=== PATIENT | male | born 1970 | race Caucasian/White ===

== ENCOUNTER 2024-02-29 08:32 | Outpatient (OUT) | payer OTHER, SELFPAY ==
[2024-02-29 09:19] LABS: Estimated Average Glucose 154 mg/dL
[2024-02-29 10:44] LABS: Basophils Percent Auto 0.6 % (0.2-2.0); Eosinophils Absolute Auto 0.2 10^3/uL (0.0-0.7); Eosinophils Percent Auto 2.1 % (0.9-7.0); Hematocrit 42.5 % (42.0-54.0); Hemoglobin 14.7 g/dL (14.0-18.0); Immature Granulocytes Abs Auto 0.03 10^3/uL (0.00-0.03); Immature Granulocytes Pct Auto 0.4 % (0.0-0.5); Lymphocytes Absolute Auto 2.3 10^3/uL (1.2-3.8); Lymphocytes Percent Auto 32.1 % (20.5-60.0); Mean Corpuscular HGB Conc 34.6 g/dL (29.9-35.2); Mean Corpuscular Hemoglobin 30.7 pg (25.9-34.0); Mean Corpuscular Volume 88.7 fL (80.0-94.0); Mean Platelet Volume 11.2 fL (9.5-13.5); Monocytes Absolute Auto 0.4 10^3/uL (0.3-0.8); Neutrophils Absolute Auto 4.2 10^3/uL (1.4-6.5); Neutrophils Percent Auto 59.8 % (43.0-75.0); Platelet Count 164 10^3/uL (150-450); Red Blood Count 4.79 10^6/uL (4.70-6.10); Red Cell Distribution Width 13.1 % (11.0-15.0)
[2024-02-29 10:57] LABS: Alanine Aminotransferase 61 U/L (16-63); Albumin Globulin Ratio 1.4; Albumin Level 4.2 g/dL (3.4-5.0); Alkaline Phosphatase 76 U/L (46-116); Anion Gap 15.5; Aspartate Amino Transferase 43 U/L (15-37); BUN Creatinine Ratio 12.5; Bilirubin Total 0.7 mg/dL (0.2-1.0); Carbon Dioxide 23.4 mmol/L (21.0-32.0); Chloride 101 mmol/L (98-107); Chol HDL Ratio 8.1; Cholesterol 309 mg/dL (<=200); Estimated GFR (African America >60 (>=60); Estimated GFR (Non-African Ame >60 (>=60); Free T3 2.74 pg/mL (2.18-3.98); Globulin 3.1 g/dL; Glucose 193 mg/dL (74-106); HDL Cholesterol 38 mg/dL (40-60); Potassium 3.9 mmol/L (3.5-5.1); Sodium 136 mmol/L (136-145); Thyroid Stimulating Hormone 1.796 uIU/mL (0.358-3.740); Total Protein 7.3 g/dL (6.4-8.2); Triglycerides 1753 mg/dL (<=150); VLDL CHOLESTEROL 350.6 mg/dL
[2024-02-29 10:59] LABS: LDL Cholesterol Direct 86 mg/dL
[2024-02-29 11:26] LABS: Prostate Specific Antigen Scrn 0.41 ng/mL (<=4.00)
[2024-03-01 12:10] LABS: Insulin 28.6 uIU/mL (2.6-24.9)
== END 2024-02-29 08:33 | disposition home or self-care (01) ==
LOC: LAB 08:36
PROVIDERS: PCP Family Medicine; Visit Provider Family Medicine
DX: Z00.00 Encounter for general adult medical examination without abnormal findings (principal); E78.5 Hyperlipidemia, unspecified; R73.09 Other abnormal glucose; Z12.5 Encounter for screening for malignant neoplasm of prostate; Z12.12 Encounter for screening for malignant neoplasm of rectum
CPT/HCPCS: 36415; 80053; 80061; 83036; 83525; 83721; 84436; 84443; 84481; 85025; G0103

== ENCOUNTER 2024-03-21 09:00 | Outpatient (REF) | payer OTHER, SELFPAY ==
--- OUTSIDE RECORDS SUMMARY | 2024-03-22 10:10 | XMS_ITS | CCD ---
Author Organization [facility] Team Providers Care Inflatable Buildings Laminator Name Role Phone MEKHI ., DR MITCHELL Primary Care Unavailable HOY ., DR MITCHELL Attending Unavailable HOY ., DR MITCHELL Admitting Unavailable HOY ., DR MITCHELL Admitting Unavailable HOY ., DR MITCHELL Primary Care Unavailable HOY ., DR MITCHELL Consulting Unavailable HOY ., DR MITCHELL Attending Unavailable HOY ., DR MITCHELL Admitting Unavailable HOY ., DR MITCHELL Attending Unavailable RodrigoyStephen Referring Unavailable Stephen Gaming Attending Unavailable Problems Problem Classification Problem Date Documented Da te Episodic/Chronic Other screening for suspected conditions (not mental disorders or infectious disease) (1 source) Encounter for screening for malignant neoplasm of prostate; Translations: [ENC SCREEN MALIG NEOPLASM PROSTATE] Onset: 12-26-2022 Episodic Results Test Name Value Interpretation Reference Range Facil ity Consent for Treatmenton 02-21 Consent for Treatment [id number] #1.00TIFF Normal [facility] Physician Orderon 03-01-2024 Physician Order [id number] #1.00TIFF Normal [facility] INSULINon 12-23-2022 Insulin 14.3 uIU/mL Normal 2.6-24.[address] [facility] Comment on above: Performed By: #### I NSULIN #### [facility] [address] [address] [address] Trisha Echeverria CBC AUTO DIFFon 12-22-2022 BASO # 0.0 103/ul Normal 0.0-0.[address] [facility] Comment on above: Performed By: #### C BC #### [facility] [address] [address] [address] Trisha Echeverria Basophils/100 WBC (Bld) 0.2 % Normal 0.2-2.[address] [facility] Comment on above: Performed By: #### C BC #### [facility] [address] [address] [address] Trisha Echeverria EO # 0.0 103/ul Normal 0.0-0.7 [facility] Comment on above: Performed By: #### C BC #### [facility] [address] [address] [address] Trisha Echeverria Eosinophils/100 WBC (Bld) 0.5 % Critically low 0.9-7.[address] [facility] Comment on above: Performed By: #### C BC #### [facility] [address] [place] [address] Dr. Trisha Echeverria Erythrocyte distribution width (RBC) [Ratio] 13.2 % Normal 11.0-15.[address] [facility] Comment on above: Performed By: #### C BC #### [facility] [address] [address] [address] Trisha Echeverria Hematocrit (Bld) [Volume fraction] 42.8 % Normal 42.0-54.[address] [facility] Comment on above: Performed By: #### C BC #### [facility] [address] [place] [address] Dr. Trisha Echeverria Hemoglobin (Bld) [Mass/Vol] 14.9 g/dL Normal 14.0-18.[address] [facility] Comment on above: Performed By: #### C BC #### [facility] [address] [address] [address] Trisha Echeverria IG # 0.05 10e3/ul Critically high 0.00-0.03 [facility] Comment on above: Performed By: #### C BC #### [facility] [address] [address] [address] Trisha Echeverria IG % 0.6 % Critically high 0.0-0.5 [facility] Comment on above: Performed By: #### C BC #### [facility] [address] [address] [address] Trisha Echeverria LYMPH # 1.7 103/ul Normal 1.2-3.8 [facility] Comment on above: Performed By: #### C BC #### [facility] [address] [place] [address] Dr. Trisha Echeverria Lymphocytes/100 WBC (Bld) 19.2 % Critically low 20.5-60.[address] [facility] Comment on above: Performed By: #### C BC #### [facility] [address] [place] [address] Dr. Trisha Echeverria MANUAL DIFF REQ NO Normal [facility] Comment on above: Performed By: #### C BC #### [facility] [address] [place] [address] Dr. Trisha Echeverria MCH (RBC) [Entitic mass] 30.7 pg Normal 25.9-34.[address] [facility] Comment on above: Performed By: #### C BC #### [facility] [address] [place] [address] Dr. Trisha Echeverria MCHC (RBC) [Mass/Vol] 34.8 g/dL Normal 29.9-35.[address] [facility] Comment on above: Performed By: #### C BC #### [facility] [address] [place] [address] Dr. Trisha Echeverria MCV (RBC) [Entitic vol] 88.2 fL Normal 80.0-94.[address] [facility] Comment on above: Performed By: #### C BC #### [facility] [address] [place] [address] Dr. Trisha Echeverria MONO # 0.5 103/ul Normal 0.3-0.8 [facility] Comment on above: Performed By: #### C BC #### [facility] [address] [place] [address] Dr. Trisha Echeverria Monocytes/100 WBC (Bld) 6.1 % Normal 1.7-12.[address] [facility] Comment on above: Performed By: #### C BC #### [facility] [address] [address] [address] Trisha Echeverria NEUT # 6.4 103/ul Normal 1.4-6.5 [facility] Comment on above: Performed By: #### C BC #### [facility] [address] [place] [address] Dr. Trisha Echeverria Neutrophils/100 WBC (Bld) 73.4 % Normal 43.0-75.[address] [facility] Comment on above: Performed By: #### C BC #### [facility] [address] [place] [address] Dr. Trisha Echeverria Platelet mean volume (Bld) [Entitic vol] 10.5 fL Normal 9.5-13.5 [facility] Comment on above: Performed By: #### C BC #### [facility] [address] [place] [address] Dr. Trisha Echeverria PLT 201 103/ul Normal 150-450 [facility] Comment on above: Performed By: #### C BC #### [facility] [address] [place] [address] Dr. Trisha Echeverria RBC 4.85 106/ul Normal 4.70-6.10 [facility] Comment on above: Performed By: #### C BC #### [facility] [address] [place] [address] Dr. Trisha Echeverria WBC 8.7 103/ul Normal 4.0-11.0 [facility] Comment on above: Performed By: #### C BC #### [facility] [address] [place] [address] Dr. Trisha Echveerria DIRECT LDLon 12-22-2022 Cholesterol in LDL [Mass/Vol] 146 mg/dL Normal [facility] Comment on above: Performed By: #### L IPID, CMP, URIC, DLDL #### [facility] [address] [place] [address] Dr. Trisha Echeverria DLDL NORMAL SEE BELOW Normal [facility] Comment on above: Result Comment: <100 mg/dl OPTIMAL 100 - 129 mg/dl NEAR OR ABOVE OPTIMAL 130 - 159 mg/dl BORDERLINE HIGH 160 - 189 mg/dl HIGH >190 mg/dl VERY HIGH Performed By: #### L IPID, CMP, URIC, DLDL #### [facility] [address] [address] [address] Trisha Echeverria GLYCOHEMOGLOBIN A1Con 2022 ADA RECOMMENDATION SEE BELOW Normal [facility] Comment on above: Result Comment: ADA RECOMMENDED LIMIT 4.0 - 6.0 ADA THERAPEUTIC TARGET < 7.0 ACTION SUGGESTED > 7.0 Performed By: #### A 1C #### [facility] [address] [address] [address] Trisha Echeverria Glucose [Mass/Vol] 137 mg/dL Normal [facility] Comment on above: Performed By: #### A 1C #### [facility] [address] [address] [address] Trisha Echeverria HbA1c (Bld) [Mass fraction] 6.4 % Critically high 4.5-6.[address] [facility] Comment on above: Performed By: #### A 1C #### [facility] [address] [address] [address] Trisha Echeverria LIPID PROFILEon 12-22-2022 CHOL-HDL RATIO NORM SEE BELOW Normal [facility] Comment on above: Result Comment: 3.3 - 4.4 LOW RISK 4.4 - 7.1 AVERAGE RISK 7.1 - 11.0 MODERATE RISK >11.0 HIGH RISK Performed By: #### L IPID, CMP, URIC, DLDL #### [facility] [address] [address] [address] Trisha Echeverria Cholesterol [Mass/Vol] 286 mg/dL Critically high <=[address] [facility] Comment on above: Performed By: #### L IPID, CMP, URIC, DLDL #### [facility] [address] [address] [address] Trisha Echeverria Cholesterol in HDL [Mass/Vol] 45 mg/dL Normal 40-[address] [facility] Comment on above: Performed By: #### L IPID, CMP, URIC, DLDL #### [facility] [address] [address] [address] Trisha Echeverria Cholesterol.total/Cho lesterol in HDL [Mass ratio] 6.4 {ratio} Normal [facility] Comment on above: Performed By: #### L IPID, CMP, URIC, DLDL #### [facility] [address] [place] [address] Dr. Trisha Echeverria HDL NORMAL > or = 60 mg/dl - LOW CARDIOVASCULAR RISK <40 mg/dl - HIGH CARDIOVASCULAR RISK Normal [facility] Comment on above: Performed By: #### L IPID, CMP, URIC, DLDL #### [facility] [address] [address] [address] Trisha Echeverria LDL CALC NORMAL SEE BELOW Normal [facility] Comment on above: Result Comment: <100 mg/dl OPTIMAL 100 - 129 mg/dl NEAR OR ABOVE OPTIMAL 130 - 159 mg/dl BORDERLINE HIGH 160 - 189 mg/dl HIGH >190 mg/dl VERY HIGH Performed By: #### L IPID, CMP, URIC, DLDL #### [facility] [address] [place] [address] Dr. Trisha Echeverria Triglyceride [Mass/Vol] 529 mg/dL Critically high <=[address] [facility] Comment on above: Performed By: #### L IPID, CMP, URIC, DLDL #### [facility] [address] [address] [address] Trisha Echeverria VLDL CALC 105.8 mg/dL Normal [facility] Comment on above: Performed By: #### L IPID, CMP, URIC, DLDL #### [facility] [address] [place] [address] Dr. Trisha Echeverria PROF 14(COMP METB)on 023 Albumin [Mass/Vol] 4.4 g/dL Normal 3.4-5.0 [facility] Comment on above: Performed By: #### L IPID, CMP, URIC, DLDL #### [facility] [address] [place] [address] Dr. Trisha Echeverria Albumin/Globulin [Mass ratio] 1.3 {ratio} Normal [facility] Comment on above: Performed By: #### L IPID, CMP, URIC, DLDL #### [facility] [address] [place] [address] Dr. Trisha Echeverria ALP [Catalytic activity/Vol] 82 U/L Normal 46-[address] [facility] Comment on above: Performed By: #### L IPID, CMP, URIC, DLDL #### [facility] [address] [address] [address] Trisha Echeverria ALT [Catalytic activity/Vol] 69 U/L Critically high 16-[address] [facility] Comment on above: Performed By: #### L IPID, CMP, URIC, DLDL #### [facility] [address] [address] [address] Trisha Echeverria Anion gap [Moles/Vol] 12.4 mmol/L Normal [facility] Comment on above: Performed By: #### L IPID, CMP, URIC, DLDL #### [facility] [address] [place] [address] Dr. Trisha Echeverria AST [Catalytic activity/Vol] 34 U/L Normal 15-[address] [facility] Comment on above: Performed By: #### L IPID, CMP, URIC, DLDL #### [facility] [address] [address] [address] Trisha Echeverria Bilirubin [Mass/Vol] 0.8 mg/dL Normal 0.2-1.[address] [facility] Comment on above: Performed By: #### L IPID, CMP, URIC, DLDL #### [facility] [address] [place] [address] Dr. Trisha Echeverria Calcium [Mass/Vol] 9.5 mg/dL Normal 8.5-10.1 [facility] Comment on above: Performed By: #### L IPID, CMP, URIC, DLDL #### [facility] [address] [address] [address] Trisha Echeverria Chloride [Moles/Vol] 100 mmol/L Normal 98-[address] [facility] Comment on above: Performed By: #### L IPID, CMP, URIC, DLDL #### [facility] [address] [address] [address] Trisha Echeverria CO2 [Moles/Vol] 28.1 mmol/L Normal 21.0-32.0 [facility] Comment on above: Performed By: #### L IPID, CMP, URIC, DLDL #### [facility] [address] [place] [address] Dr. Trisha Echeverria Creatinine [Mass/Vol] 1.15 mg/dL Normal 0.70-1.[address] [facility] Comment on above: Performed By: #### L IPID, CMP, URIC, DLDL #### [facility] [address] [place] [address] Dr. Trisha Echeverria EGFR-AF [place]LANDER >60 Normal >=60 [facility] Comment on above: Performed By: #### L IPID, CMP, URIC, DLDL #### [facility] [address] [place] [address] Dr. Trisha Echeverria EGFR-NON AF [place]ER >60 Normal >=[address] [facility] Comment on above: Performed By: #### L IPID, CMP, URIC, DLDL #### [facility] [address] [place] [address] Dr. Trisha Echeverria Globulin (S) [Mass/Vol] 3.4 g/dL Normal [facility] Comment on above: Performed By: #### L IPID, CMP, URIC, DLDL #### [facility] [address] [place] [address] Dr. Trisha Echeverria Glucose [Mass/Vol] 148 mg/dL Critically high 74-106 [facility] Comment on above: Performed By: #### L IPID, CMP, URIC, DLDL #### [facility] [address] [place] [address] Dr. Trisha Echeverria Potassium [Moles/Vol] 4.5 mmol/L Normal 3.5-5.[address] [facility] Comment on above: Performed By: #### L IPID, CMP, URIC, DLDL #### [facility] [address] [place] [address] Dr. Trisha Echeverria Protein [Mass/Vol] 7.8 g/dL Normal 6.4-8.2 [facility] Comment on above: Performed By: #### L IPID, CMP, URIC, DLDL #### [facility] [address] [address] [address] Trisha Echeverria Sodium [Moles/Vol] 136 mmol/L Normal 136-145 [facility] Comment on above: Performed By: #### L IPID, CMP, URIC, DLDL #### [facility] [address] [address] [address] Trisha Echeverria Urea nitrogen [Mass/Vol] 14.0 mg/dL Normal 7.0-18.[address] [facility] Comment on above: Performed By: #### L IPID, CMP, URIC, DLDL #### [facility] [address] [address] [address] Trisha Echeverria Urea nitrogen/Creatinine [Mass ratio] 12.2 mg/mg Normal [facility] Comment on above: Performed By: #### L IPID, CMP, URIC, DLDL #### [facility] [address] [address] [address] Trisha Echeverria URIC ACID SERUMon 12-22-2022 Urate [Mass/Vol] 4.8 mg/dL Normal 3.5-7.2 [facility] Comment on above: Performed By: #### L IPID, CMP, URIC, DLDL #### [facility] [address] [address] [address] Trisha Echeverria Encounters Encounter Date Encounter Type Care Provider Facility Start: 03-07-2024 ambulatory Stephen Gaming Facility:[facility] Start: [address] STEPHEN GAMING . Facili ty:[facility] Start: 12-26-2022 Encounter for genera l adult medical examination without abnormal findings DR STEPHEN GAMING . [facility] Start: 12-22-2022 End: 12-23-[address] STEPHEN GAMING . Facility:[facility] Start: 12-22-2022 End: 12-23-2022 Encounter for general adult medical examination without abnormal findings DR STEPHEN GAMING . Facility: Start: 12-16-[address] STEPHEN GAMING . Facili ty:[facility] Procedures Date Procedure Procedure Detail Performing Clinician Start: 12-22-[address] TAYLER GAMING . Comment on above: Performed By: #### P SASC #### [facility] [address] [place], [place] [address] Dr. Trisha Echeverria Payers Date Payer Category Payer Unknown [id number] 1970 Unknown [id number] 2.16.84 [id number] 1972 Unknown [id number] 2.16.84 [id number] 1972 Unknown [id number] 2.16.84 [id number] 1972 Unknown [id number] 2.16.8 [id number] 1957 Self-pay Summary Purpose Family History No Family History Records FoundNo Family History Records Found Advance Directives No Advanced Directives Records FoundNo Advanced Directives Records Found Additional Source Comments (unrecognized sect ion and content) No Status Records FoundNo Status Records Found INFORMATION SOURCE (unrecogn ized section and content) DATE CREATED AUTHOR 01/13/2023 [facility] DATE CREATED AUTHOR AUTHOR'S ORGANIZ ATION 03/09/2024 [facility] FOR RECORDS PERTAINING TO PATIENTS WHO ARE OR HAVE BEEN ENROLLED IN A CHEMICAL DEPENDENCY/SUBSTANCEABUSE PROGRAM, SOME INFORMATION MAY BE OMITTED. This clinical summary was aggregated from multiple sources. Caution should be exercised in using it in the provision of clinical care. This summary normalizes information from multiple sources, and as a consequence, information in this document may materially change the coding, format and clinical context of patient data. In addition, data may be omitted in some cases. CLINICAL DECISIONS SHOULD BE BASED ON THE PRIMARY CLINICAL RECORDS. [employer] provides no warranty or guarantee of the accuracy or completeness of information in this document.
[2024-03-22 15:40] LABS: Internal Control Within Normal Limits; Occult Blood Negative
== END 2024-03-21 09:01 | disposition home or self-care (01) ==
LOC: LAB 09:00
PROVIDERS: PCP Family Medicine; Visit Provider Family Medicine
DX: Z00.00 Encounter for general adult medical examination without abnormal findings (principal); E78.5 Hyperlipidemia, unspecified; R73.09 Other abnormal glucose; Z12.5 Encounter for screening for malignant neoplasm of prostate; Z12.12 Encounter for screening for malignant neoplasm of rectum
CPT/HCPCS: G0328

== ENCOUNTER 2024-08-14 09:58 | Outpatient (OUT) | payer OTHER, SELFPAY ==
--- OUTSIDE RECORDS SUMMARY | 2024-08-14 10:12 | XMS_ITS | CCD ---
Author Organization [facility] Care Team Providers Care Decorating Supervisor Name Role Phone MEKHI ., DR MITCHELL Primary Care Unavailable HOY ., DR MITCHELL Attending Unavailable HOY ., DR MITCHELL Admitting Unavailable HOY ., DR MITCHELL Admitting Unavailable HOY ., DR MITCHELL Primary Care Unavailable HOY ., DR MITCHELL Consulting Unavailable HOY ., DR MITCHELL Attending Unavailable HOY ., DR IMTCHELL Admitting Unavailable MEKHI ., DR MITCHELL Attending Unavailable Stephen Gaming Primary Care Physician Stephen Gaming Referring Unavailable Stephen Gaming Attending Unavailable Medications Current Medications Medication Drug Class(es) Dates Sig (Normalized) Sig (Original) Acetaminophen / HYDROcodone (1 source) Opioid Agonist Start: 11-22-2012 Vicodin Oral, Refill(s) 0 Start Date: 11/22/12 Status: Ordered Acetaminophen / oxyCODONE (1 source) Opioid Agonist Start: 11-22-2012 Percocet 325 mg-5 mg Tab 1-2 tab(s), Oral, q4hr as needed for pain, 30 tab(s), Refill(s) 0, Take 1-2 tab by mouth every four hours as needed for pain Start Date: 11/22/12 Status: Ordered tamsulosin hydrochloride 0.4 mg oral capsule (1 source) alpha-Adrenergic Vanesa Start: 11-22-2012 take 1 capsule by mouth once daily, then take 1 capsule by mouth once daily Flomax 0.4 mg Cap 0.4 mg = 1 cap(s), Oral, Daily, Take one by mouth daily, # 10 cap(s), Refills(s) 0 Start Date: 11/22/12 Status: Ordered Completed/Discontinued Medications Medication Drug Class(es) Dates Sig (Normalized) Sig (Original) ondansetron 4 mg oral tablet (1 source) Serotonin-3 Receptor Antagonist Start: 11-22-2012 take 1 tablet by mouth every six hours as needed for nausea Zofran 4 mg Tab 4 mg = 1 tab(s), Oral, q6hr, PRN as needed for nausea/vomiting, Take one tab by mouth every six hours as needed for nausea, # 8 tab(s), Refills(s) 0 Start Date: 11/22/12 Status: Ordered Problems Problem Classification Problem Date Documented Da te Episodic/Chronic Administrative/social admission (1 source) Counseling procedure with explicit context; Translations: [Dietary counseling and surveillance] Episodic Diabetes mellitus without complication (1 source) Type 2 diabetes mellitus without complication; Translations: [Type 2 diabetes mellitus without complications] Chronic Other screening for suspected conditions (not mental disorders or infectious disease) (2 sources) Encounter for screening for malignant neoplasm of prostate; Translations: [No current problems or disability] Onset: 12-26-2022 04-11-2014 Episodic Results Test Name Value Interpretation Reference Range Facil ity Consent for Treatmenton 02-21 Consent for Treatment [id number] #1.00TIFF Normal [facility] Physician Orderon 03-01-2024 Physician Order [id number] #1.00TIFF Normal [facility] INSULINon 12-23-2022 Insulin 14.3 uIU/mL Normal 2.6-24.9 [facility] Comment on above: Performed By: #### I NSULIN #### [facility] [address] [place] [address] Dr. Trisha Echeverria CBC AUTO DIFFon 12-22-2022 BASO # 0.0 103/ul Normal 0.0-0.1 [facility] Comment on above: Performed By: #### C BC #### [facility] [address] [place] [address] Dr. Trisha Echeverria Basophils/100 WBC (Bld) 0.2 % Normal 0.2-2.0 [facility] Comment on above: Performed By: #### C BC #### [facility] [address] [place] [address] Dr. Trisha Echeverria EO # 0.0 103/ul Normal 0.0-0.7 [facility] Comment on above: Performed By: #### C BC #### [facility] [address] [place] [address] Dr. Trisha Echeverria Eosinophils/100 WBC (Bld) 0.5 % Critically low 0.9-7.0 [facility] Comment on above: Performed By: #### C BC #### [facility] [address] [place] [address] Dr. Trisha Echeverria Erythrocyte distribution width (RBC) [Ratio] 13.2 % Normal 11.0-15.0 [facility] Comment on above: Performed By: #### C BC #### [facility] [address] [place] [address] Dr. Trisha Echeverria Hematocrit (Bld) [Volume fraction] 42.8 % Normal 42.0-54.0 [facility] Comment on above: Performed By: #### C BC #### [facility] [address] [place] [address] Dr. Trisha Echeverria Hemoglobin (Bld) [Mass/Vol] 14.9 g/dL Normal 14.0-18.0 [facility] Comment on above: Performed By: #### C BC #### [facility] [address] [place] [address] Dr. Trisha Echeverria IG # 0.05 10e3/ul Critically high 0.00-0.03 [facility] Comment on above: Performed By: #### C BC #### [facility] [address] [place] [address] Dr. Trisha Echeverria IG % 0.6 % Critically high 0.0-0.5 [facility] Comment on above: Performed By: #### C BC #### [facility] [address] [place] [address] Dr. Trisha Echeverria LYMPH # 1.7 103/ul Normal 1.2-3.8 [facility] Comment on above: Performed By: #### C BC #### [facility] [address] [place] [address] Dr. Trisha Echeverria Lymphocytes/100 WBC (Bld) 19.2 % Critically low 20.5-60.0 [facility] Comment on above: Performed By: #### C BC #### [facility] [address] [place] [address] Dr. Trisha Echeverria MANUAL DIFF REQ NO Normal [facility] Comment on above: Performed By: #### C BC #### [facility] [address] [place] [address] Dr. Trisha Echeverria MCH (RBC) [Entitic mass] 30.7 pg Normal 25.9-34.0 [facility] Comment on above: Performed By: #### C BC #### [facility] [address] [place] [address] Dr. Trisha Echeverria MCHC (RBC) [Mass/Vol] 34.8 g/dL Normal 29.9-35.2 [facility] Comment on above: Performed By: #### C BC #### [facility] [address] [place] [address] Dr. Trisha Echeverria MCV (RBC) [Entitic vol] 88.2 fL Normal 80.0-94.0 [facility] Comment on above: Performed By: #### C BC #### [facility] [address] [place] [address] Dr. Trisha Echeverria MONO # 0.5 103/ul Normal 0.3-0.8 [facility] Comment on above: Performed By: #### C BC #### [facility] [address] [place] [address] Dr. Trisha Echeverria Monocytes/100 WBC (Bld) 6.1 % Normal 1.7-12.0 [facility] Comment on above: Performed By: #### C BC #### [facility] [address] [place] [address] Dr. Trisha Echeverria NEUT # 6.4 103/ul Normal 1.4-6.5 [facility] Comment on above: Performed By: #### C BC #### [facility] [address] [place] [address] Dr. Trisha Echeverria Neutrophils/100 WBC (Bld) 73.4 % Normal 43.0-75.0 [facility] Comment on above: Performed By: #### C BC #### [facility] [address] [address] [address] Trisha Echeverria Platelet mean volume (Bld) [Entitic vol] 10.5 fL Normal 9.5-13.5 [facility] Comment on above: Performed By: #### C BC #### [facility] [address] [address] [address] Trisha Echeverria PLT 201 103/ul Normal 150-450 [facility] Comment on above: Performed By: #### C BC #### [facility] [address] [address] [address] Trisha Echeverria RBC 4.85 106/ul Normal 4.70-6.10 [facility] Comment on above: Performed By: #### C BC #### [facility] [address] [address] [address] Trisha Echeverria WBC 8.7 103/ul Normal 4.0-11.0 [facility] Comment on above: Performed By: #### C BC #### [facility] [address] [address] [address] Trisha Echeverria DIRECT LDLon 12-22-2022 Cholesterol in LDL [Mass/Vol] 146 mg/dL Normal [facility] Comment on above: Performed By: #### L IPID, CMP, URIC, DLDL #### [facility] [address] [address] [address] Trisha Echeverria DLDL NORMAL SEE BELOW Normal [facility] Comment on above: Result Comment: <100 mg/dl OPTIMAL 100 - 129 mg/dl NEAR OR ABOVE OPTIMAL 130 - 159 mg/dl BORDERLINE HIGH 160 - 189 mg/dl HIGH >190 mg/dl VERY HIGH Performed By: #### L IPID, CMP, URIC, DLDL #### [facility] [address] [address] [address] Trisha Echeverria GLYCOHEMOGLOBIN A1Con 2022 ADA RECOMMENDATION SEE BELOW Normal [facility] Comment on above: Result Comment: ADA RECOMMENDED LIMIT 4.0 - 6.0 ADA THERAPEUTIC TARGET < 7.0 ACTION SUGGESTED > 7.0 Performed By: #### A 1C #### [facility] [address] [address] [address] Trisha Echeverria Glucose [Mass/Vol] 137 mg/dL Normal [facility] Comment on above: Performed By: #### A 1C #### [facility] [address] [address] [address] Trisha Echeverria HbA1c (Bld) [Mass fraction] 6.4 % Critically high 4.5-6.2 [facility] Comment on above: Performed By: #### A 1C #### [facility] [address] [address] [address] Trisha Echeverria LIPID PROFILEon 12-22-2022 CHOL-HDL RATIO NORM SEE BELOW Normal [facility] Comment on above: Result Comment: 3.3 - 4.4 LOW RISK 4.4 - 7.1 AVERAGE RISK 7.1 - 11.0 MODERATE RISK >11.0 HIGH RISK Performed By: #### L IPID, CMP, URIC, DLDL #### [facility] [address] [address] [address] Trisha Echeverria Cholesterol [Mass/Vol] 286 mg/dL Critically high <=200 [facility] Comment on above: Performed By: #### L IPID, CMP, URIC, DLDL #### [facility] [address] [address] [address] Trisha Echeverria Cholesterol in HDL [Mass/Vol] 45 mg/dL Normal 40-60 [facility] Comment on above: Performed By: #### L IPID, CMP, URIC, DLDL #### [facility] [address] [address] [address] Trisha Echeverria Cholesterol.total/Cho lesterol in HDL [Mass ratio] 6.4 {ratio} Normal [facility] Comment on above: Performed By: #### L IPID, CMP, URIC, DLDL #### [facility] [address] [address] [address] Trisha Echeverria HDL NORMAL > or = 60 mg/dl - LOW CARDIOVASCULAR RISK <40 mg/dl - HIGH CARDIOVASCULAR RISK Normal [facility] Comment on above: Performed By: #### L IPID, CMP, URIC, DLDL #### [facility] [address] [address] [address] Trisha Echeverria LDL CALC NORMAL SEE BELOW Normal [facility] Comment on above: Result Comment: <100 mg/dl OPTIMAL 100 - 129 mg/dl NEAR OR ABOVE OPTIMAL 130 - 159 mg/dl BORDERLINE HIGH 160 - 189 mg/dl HIGH >190 mg/dl VERY HIGH Performed By: #### L IPID, CMP, URIC, DLDL #### [facility] [address] [address] [address] Trisha Echeverria Triglyceride [Mass/Vol] 529 mg/dL Critically high <=150 [facility] Comment on above: Performed By: #### L IPID, CMP, URIC, DLDL #### [facility] [address] [address] [address] Trisha Echeverria VLDL CALC 105.8 mg/dL Normal [facility] Comment on above: Performed By: #### L IPID, CMP, URIC, DLDL #### [facility] [address] [address] [address] Trisha Echeverria PROF 14(COMP METB)on 023 Albumin [Mass/Vol] 4.4 g/dL Normal 3.4-5.0 [facility] Comment on above: Performed By: #### L IPID, CMP, URIC, DLDL #### [facility] [address] [address] [address] Trisha Echeverria Albumin/Globulin [Mass ratio] 1.3 {ratio} Normal [facility] Comment on above: Performed By: #### L IPID, CMP, URIC, DLDL #### [facility] [address] [address] [address] Trisha Echeverria ALP [Catalytic activity/Vol] 82 U/L Normal 46-116 [facility] Comment on above: Performed By: #### L IPID, CMP, URIC, DLDL #### [facility] [address] [address] [address] Trisha Echeverria ALT [Catalytic activity/Vol] 69 U/L Critically high 16-63 [facility] Comment on above: Performed By: #### L IPID, CMP, URIC, DLDL #### [facility] [address] [address] [address] Trisha Echeverria Anion gap [Moles/Vol] 12.4 mmol/L Normal [facility] Comment on above: Performed By: #### L IPID, CMP, URIC, DLDL #### [facility] [address] [address] [address] Trisha Echeverria AST [Catalytic activity/Vol] 34 U/L Normal 15-37 [facility] Comment on above: Performed By: #### L IPID, CMP, URIC, DLDL #### [facility] [address] [address] [address] Trisha Echeverria Bilirubin [Mass/Vol] 0.8 mg/dL Normal 0.2-1.0 [facility] Comment on above: Performed By: #### L IPID, CMP, URIC, DLDL #### [facility] [address] [address] [address] Trisha Echeverria Calcium [Mass/Vol] 9.5 mg/dL Normal 8.5-10.1 [facility] Comment on above: Performed By: #### L IPID, CMP, URIC, DLDL #### [facility] [address] [place] [address] Dr. Trisha Echeverria Chloride [Moles/Vol] 100 mmol/L Normal 98-[address] [facility] Comment on above: Performed By: #### L IPID, CMP, URIC, DLDL #### [facility] [address] [place] [address] Dr. Trisha Echeverria CO2 [Moles/Vol] 28.1 mmol/L Normal 21.0-32.0 [facility] Comment on above: Performed By: #### L IPID, CMP, URIC, DLDL #### [facility] [address] [place] [address] Dr. Trisha Echeverria Creatinine [Mass/Vol] 1.15 mg/dL Normal 0.70-1.30 [facility] Comment on above: Performed By: #### L IPID, CMP, URIC, DLDL #### [facility] [address] [address] [address] Trisha Echeverria EGFR-AF [place] >60 Normal >=60 [facility] Comment on above: Performed By: #### L IPID, CMP, URIC, DLDL #### [facility] [address] [address] [address] Trisha Echeverria EGFR-NON AF [place] >60 Normal >=60 [facility] Comment on above: Performed By: #### L IPID, CMP, URIC, DLDL #### [facility] [address] [address] [address] Trisha Echeverria Globulin (S) [Mass/Vol] 3.4 g/dL Normal [facility] Comment on above: Performed By: #### L IPID, CMP, URIC, DLDL #### [facility] [address] [place] [address] Dr. Trisha Echeverria Glucose [Mass/Vol] 148 mg/dL Critically high 74-106 [facility] Comment on above: Performed By: #### L IPID, CMP, URIC, DLDL #### [facility] [address] [address] [address] Trisha Echeverria Potassium [Moles/Vol] 4.5 mmol/L Normal 3.5-5.1 [facility] Comment on above: Performed By: #### L IPID, CMP, URIC, DLDL #### [facility] [address] [address] [address] Trisha Echeverria Protein [Mass/Vol] 7.8 g/dL Normal 6.4-8.2 [facility] Comment on above: Performed By: #### L IPID, CMP, URIC, DLDL #### [facility] [address] [place] [address] Dr. Trisha Echeverria Sodium [Moles/Vol] 136 mmol/L Normal 136-145 [facility] Comment on above: Performed By: #### L IPID, CMP, URIC, DLDL #### [facility] [address] [address] [address] Trisha Echeverria Urea nitrogen [Mass/Vol] 14.0 mg/dL Normal 7.0-18.0 [facility] Comment on above: Performed By: #### L IPID, CMP, URIC, DLDL #### [facility] [address] [address] [address] Trisha Echeverria Urea nitrogen/Creatinine [Mass ratio] 12.2 mg/mg Normal [facility] Comment on above: Performed By: #### L IPID, CMP, URIC, DLDL #### [facility] [address] [address] [address] Trisha Echeverria URIC ACID SERUMon 12-22-2022 Urate [Mass/Vol] 4.8 mg/dL Normal 3.5-7.2 [facility] Comment on above: Performed By: #### L IPID, CMP, URIC, DLDL #### [facility] [address] [address] [address] Trisha Echeverria Encounters Encounter Date Encounter Type Care Provider Facility Start: 03-07-2024 End: 06-05-2024 ambulatory Stephen Gaming Facility:[facility] Start: 03-07-2024 End: 06-05-2024 Recurring Stephen Gaming [facility] Start: [address] STEPHEN GAMING . Facili ty:[facility] Start: 12-26-2022 Encounter for genera l adult medical examination without abnormal findings DR STEPHEN GAMING . [facility] Start: 12-22-2022 End: 12-23-[address] STEPHEN GAMING . Facility: Start: 12-22-2022 End: 12-23-2022 Encounter for general adult medical examination without abnormal findings DR STEPHEN GAMING . Facility:[facility] Start: 12-16-[address] STEPHEN GAMING . Facili ty:[facility] Procedures Date Procedure Procedure Detail Performing Clinician Start: 12-22-[address] TAYLER GAMING . Comment on above: Performed By: #### P SASC #### [facility] [address] [address] [address] Trisha Echeverria Undescended testicle surgery Stephen Gaming Payers Date Payer Category Payer Unknown [id number] 1970 Unknown [id number] 2.16.84 [id number] 1972 Unknown [id number] [id number] [id number] 1972 Unknown [id number] [id number] [id number] 1972 Unknown [id number] [id number] 1957 Self-pay Social History Date Type Detail Facility Tobacco smoking status [facility] Evaluation + Plan note Note Date & Type Note Facility Evaluation + Plan note No data available for this section [facility] Hospital Discharge instructions Note Date & Type Note Facility Hospital Discharge instructions No data available for this section [facility] Progress note Note Date & Type Note Facility Progress note No data available for this section [facility] Summary Purpose Family History No Family History Records Found No data available for this section No Family History Records Found Advance Directives No Advanced Directives Records FoundNo Advanced Directives Records Found Additional Source Comments (unrecognized sect ion and content) No Status Records FoundNo Status Records Found INFORMATION SOURCE (unrecogn ized section and content) DATE CREATED AUTHOR 01/13/2023 [facility] DATE CREATED AUTHOR AUTHOR'S ORGANIZ ATION 06/07/2024 [facility] Patient Care team informatio n (unrecognized section and content) Personnel Name: Stephen Gaming MD Address: Address: [address] [place] [address] FOR RECORDS PERTAINING TO PATIENTS WHO ARE [...] BE BASED ON THE PRIMARY CLINICAL RECORDS. [facility] [employer] [facility]. provides no warranty or guarantee of the accuracy or completeness of information in this document.
== END 2024-08-14 09:59 | disposition home or self-care (01) ==
LOC: CARD 10:00
PROVIDERS: PCP Family Medicine; Visit Provider Family Medicine
DX: R55 Syncope and collapse (principal)
CPT/HCPCS: 93246